=== PATIENT | male | born 1955 | race Caucasian/White ===

== ENCOUNTER 2024-12-27 14:37 | Emergency (ER) | payer MEDICARE ==
[~2024-12-27] VITALS: Ht 175.3 cm; Wt 89.2 kg
--- NOTE | 2024-12-27 15:43 | ED.PDOC ---
SOB-HPI HPI Comments 69-year-old male with a history of hypertension, brought in by self complaining of cough and dyspnea on exertion for the past week, associated with fever. Patient denies chest pain, nausea, vomiting, diaphoresis or edema. He states he has felt malaise along with the other symptoms, and has been unable to work out due to dyspnea. He states he is able to complete daily activities without dyspnea. Chief Complaint: Shortness of Breath Time Seen by MD: 15:02 Primary Care Provider: ELSA Astudillo notes: Nurses Notes, Medications, Allergies Information Source: Patient Mode of Arrival: Ambulatory Severity: Moderate Timing: Days Duration: Since onset, Days Context: With Light Exertion, Spontaneous Onset PE Risk Factors: None History of: None Prehospital treatment: None Associated Signs and Symptoms: Fever, Cough If cough with SOB: Non-Productive Past Medical History PAST MEDICAL HISTORY: HTN Past Medical History (Other): Hypertension Surgical History: Appendectomy Family History Family History: Reviewed,noncontributory to illness, Unobtainable Social History Smoker: Non-Smoker Alcohol: Denies ETOH Use Drugs: Denies Drug Use Lives In: Home All Other Systems: Reviewed and Negative (Comprehensive systems review obtained and negative except for what is stated in the HPI) Physical Exam General Appearance: Normal HEENT: Normal ENT Inspection, Pharynx Normal, TMs Normal Neck: Full Range of Motion, Non-Tender, Normal, Normal Inspection Respiratory: Chest Non-Tender, Lungs Clear, No Accessory Muscle Use, No Respiratory Distress, Normal Breath Sounds Cardiovascular: No Edema, No JVD, No Murmur, No Gallop, Normal Peripheral Pulses, Regular Rate/Rhythm Breast Exam: Deferred Gastrointestinal: No Organomegaly, Non Tender, No Pulsatile Mass, Normal Bowel Sounds, Soft Genitalia: Deferred Pelvic: Deferred Rectal: Deferred Extremities: No calf tenderness, Normal capillary refill, Normal inspection, Normal range of motion, Non-tender, No pedal edema Musculoskeletal : Apperance: Normal Neurologic: Alert, scientific research associate II-XII nml as Tested, No Motor Deficits, Normal Affect, Normal Mood, No Sensory Deficits Cerebellar Function: Normal Reflexes: Normal Skin: Dry, Normal Color, Rash (Erythematous maculopapular rash on chest and anterior abdominal wall), Warm Lymphatic: No Adenopathy Was a procedure done? Was a procedure done?: No Differential Dx Differential Diagnosis: Asthma, Bronchitis, CHF, COPD, Pneumonia, Respiratory Distress, URI X-Ray, Labs, Meds, VS Vital Signs Date Time Temp Pulse Resp B/P (MAP) Pulse Ox O2 Delivery O2 Flow Rate FiO2 12/27/24 17:54 102 18 103/54 (70) 94 12/27/24 16:21 111 20 93 Room Air* 0 21 12/27/24 16:21 99.0 111 18 137/79 (98) 93 99.0 12/27/24 16:01 99.5 12/27/24 15:00 101.2 115 20 122/79 (93) 95 Lab Test 12/27/24 16:50 12/27/24 15:57 Range/Units Troponin I High Sensitivity 7 7 </=54 ng/L White Blood Count 10.1 4.4-10.8 10^3/uL Red Blood Count 4.37 L 4.5-5.90 10^6/uL Hemoglobin 12.5 L 13.5-17.5 g/dL Hematocrit 36.9 L 41.0-53.0 % Mean Corpuscular Volume 84.5 80.0-100.0 fL Mean Corpuscular Hemoglobin 28.6 28.0-32.0 pg Mean Corpuscular Hemoglobin Concent 33.8 32.0-36.0 g/dL Red Cell Distribution Width 15.9 H 11.8-14.3 % Platelet Count 235 140-450 10^3/uL Mean Platelet Volume 9.2 6.9-10.8 fL Neutrophils (%) (Auto) 76.7 37.0-80.0 % Lymphocytes (%) (Auto) 12.2 10.0-50.0 % Monocytes (%) (Auto) 9.8 0.0-12.0 % Eosinophils (%) (Auto) 0.9 0.0-7.0 % Basophils (%) (Auto) 0.4 0.0-2.0 % Neutrophils # (Auto) 7.7 1.6-8.6 10 ^3/uL Lymphocytes # (Auto) 1.2 0.4-5.4 10 ^3/uL Monocytes # (Auto) 1.0 0-1.3 10 ^3/uL Eosinophils # (Auto) 0.1 0-0.8 10 ^3/uL Basophils # (Auto) 0 0-0.2 10 ^3/uL Nucleated Red Blood Cells 0.1 % Sodium Level 136 136-145 mmol/L Potassium Level 3.4 L 3.5-5.1 mmol/L Chloride Level 103 98-107 mmol/L Carbon Dioxide Level 24 20-31 mmol/L Anion Gap 9 5-15 Blood Urea Nitrogen 12 9-23 mg/dL Creatinine 1.19 0.700-1.30 mg/dL Glomerular Filtration Rate Calc 67 >90 mL/min BUN/Creatinine Ratio 10.1 10.0-20.0 Serum Glucose 113 H 74-106 mg/dL Lactic Acid Level 0.9 0.4-2.0 mmol/L Calcium Level 9.7 8.7-10.4 mg/dL B-Type Natriuretic Peptide 16.48 0-100 pg/mL Current Medications Medications (Trade) Dose Ordered Sig/Corinna Route Start Time Stop Time Status Last Admin Acetaminophen (Tylenol Tablet Or Capsule) 1,000 mg ONCE ONCE PO 12/27/24 15:30 12/27/24 15:31 DC 12/27/24 16:01 Ceftriaxone Sodium 50 ml @ 100 mls/hr ONCE ONCE IV 12/27/24 15:45 12/27/24 16:14 DC 12/27/24 16:01 Azithromycin 250 ml @ 125 mls/hr ONCE ONCE IV 12/27/24 15:45 12/27/24 17:44 DC 12/27/24 16:01 PROCEDURE(s): CXR2 - CHEST TWO VIEWS ROUTINE REASON: COUGH ORDER NUMBER(s): [id number], ACCESSION NUMBER(s): [id number] CHEST TWO VIEWS ROUTINE CLINICAL HISTORY: COUGH COMPARISON: None TECHNIQUE: Frontal and lateral view of the chest was obtained FINDINGS: Lines and Tubes: None Lungs: Left perihilar l and eft lower lobe infiltrates Pleura: No effusion. No pneumothorax. Cardiomediastinal contours: Unremarkable Bones: No acute osseous abnormality. IMPRESSION: 1. Left perihilar and left lower lobe infiltrates X-Ray, Labs, Meds, VS Comment 69-year-old male with a history of hypertension, brought in by self complaining of cough and dyspnea on exertion for the past week, associated with fever. Vitals remarkable for temperature 101.2, heart rate 115 Exam unremarkable Rhythm strip independently interpreted by me: Sinus tach, rate 115, no ectopy. Chest x-ray IMPRESSION: 1. Left perihilar and left lower lobe infiltrates CBC unremarkable, metabolic panel remarkable for potassium 3.4, BNP and troponin negative. Influenza and COVID tests were ordered, however patient stated he wanted to leave prior to results. Patient treated with the following in the ED: Tylenol 1 g p.o., Rocephin 1 g IV, Zithromax 500 mg IV, KCl 40 mEq p.o. On re-evaluation, patient stated he was feeling better and would like to be discharged home. Hospitalization was considered, however patient stated he not want to be hospitalized. Fever has resolved, oxygen saturation is normal on room air, and I am comfortable discharging the patient with close follow-up with his primary physician. Rx cefuroxime, Zithromax, Tylenol, albuterol Time of 1ST Reevaluation: 15:32 Reevaluation 1ST: Unchanged Time of 2ND Reevaluation: 17:54 Reevaluation 2ND: Improved Patient Education/Counseling: Diagnosis, Treatment, Prognosis Family Education/Counseling: No Family Present Departure 1 Departure Time of Disposition: 17:54 Impression: Primary Impression: Pneumonia Qualified Codes: J18.9 - Pneumonia, unspecified organism Disposition: 01 HOME / SELF CARE / HOMELESS Condition: Stable Additional Instructions: Follow-up with your primary doctor in 1-2 days. I have prescribed antibiotics, medicine for pain or fever, and an inhaler for difficulty breathing to use as needed. Return to ER for persistent or worsening symptoms. e-Prescriptions Albuterol Sulfate (Albuterol Sulfate Hfa) 108 Mcg/Act Aer 2 PUFF IN Q6HP PRN, #1 AER prn difficulty breathing Prov: CHAKA OLIVEIRA MD 12/27/24 Acetaminophen (Tylenol Extra Strength) 500 Mg Tab 1000 MG PO Q6HP PRN, #30 TAB prn fever or pain Prov: CHAKA OLIVEIRA MD 12/27/24 Azithromycin (Zithromax Z-José Miguel) 250 Mg Tab 250 MG PO DAILY, #6 TAB 2 tabs po on day 1, then 1 tab daily x 4 days Prov: CHAKA OLIVEIRA MD 12/27/24 Cefuroxime Axetil (Cefuroxime Axetil) 500 Mg Tab 1 TAB PO BID, #20 TAB Prov: CHAKA OLIVEIRA MD 12/27/24 Discharged With: Self Critical Care Note Critical Care Time?: No Stability Stability form required: No Heart Score Heart Score: Heart Score Response (Comments) Value History N/A 0 EKG N/A 0 Age N/A 0 Risk Factors N/A 0 Troponin N/A 0 Total 0 I personally scribed for CHAKA OLIVEIRA MD ([email or web address]) on 12/27/24 at 16:02. Electronically submitted by Edvin Chu ([email or web address]). CHAKA OLIVEIRA MD Dec 27, 2024 15:43
[2024-12-27] MEDS: AZITHROMYCIN 500MG/ 250ML 250 ML IV ONE (16:01)
[2024-12-27] MEDS: ACETAMINOPHEN 500 MG TAB or CAP PO ONE (16:01)
[2024-12-27] MEDS: cefTRIAXone 1GM/50ML D5W 50 ML IV ONE (16:01)
[2024-12-27 16:13] LABS: Basophils # (auto) 0 10 ^3/uL (0-0.2); Basophils % (auto) 0.4 % (0.0-2.0); Eosinophils # (auto) 0.1 10 ^3/uL (0-0.8); Eosinophils % (auto) 0.9 % (0.0-7.0); Hematocrit 36.9 % (41.0-53.0); Hemoglobin 12.5 g/dL (13.5-17.5); Lymphocytes # (auto) 1.2 10 ^3/uL (0.4-5.4); Lymphocytes % (auto) 12.2 % (10.0-50.0); Mean Corpuscular Hemoglobin 28.6 pg (28.0-32.0); Mean Corpuscular Hgb Conc. 33.8 g/dL (32.0-36.0); Mean Corpuscular Volume 84.5 fL (80.0-100.0); Monocytes % (auto) 9.8 % (0.0-12.0); Neutrophils # (auto) 7.7 10 ^3/uL (1.6-8.6); Neutrophils % (auto) 76.7 % (37.0-80.0); Nucleated Red Blood Cells % 0.1 %; Platelet Count (auto) 235 10^3/uL (140-450); Red Blood Cells 4.37 10^6/uL (4.5-5.90); Red Cell Distribution Width 15.9 % (11.8-14.3); White Blood Cell 10.1 10^3/uL (4.4-10.8)
[2024-12-27 16:21] VITALS: PULSE 111; RESP 20; TEMP 99; O2SAT 93
[2024-12-27 16:23] LABS: Chloride 103 mmol/L (98-107); Sodium 136 mmol/L (136-145)
[2024-12-27 16:24] LABS: Anion Gap 9 (5-15); Calcium 9.7 mg/dL (8.7-10.4); Carbon Dioxide 24 mmol/L (20-31)
[2024-12-27 16:29] LABS: BUN/Creatinine Ratio 10.1 (10.0-20.0); Blood Urea Nitrogen 12 mg/dL (9-23)
[2024-12-27 16:38] LABS: Glucose 113 mg/dL (74-106); Potassium 3.4 mmol/L (3.5-5.1)
[2024-12-27 17:54] VITALS: BP 103/54; PULSE 102; RESP 18; O2SAT 94
[2024-12-27] MEDS ORDERED: ACET-1304 PO (18:02)
[2024-12-27] MEDS ORDERED: ALBU108A5 IN (18:02)
[2024-12-27] MEDS ORDERED: CEFU500T43 PO (18:02)
[2024-12-27] MEDS ORDERED: AZITTAB PO (18:02)
[2024-12-27] MEDS: POTASSIUM CHL 20 Meq TABLET PO ONE (18:16)
== END 2024-12-27 18:20 | disposition home or self-care (01) ==
LOC: ER 14:37
DX: J18.9 Pneumonia, unspecified organism (principal); I10 Essential (primary) hypertension; Z90.49 Acquired absence of other specified parts of digestive tract
CPT/HCPCS: 36415; 80048; 83605; 83880; 84484; 85025; 87040; 96365; 96366; 96368; 99284; J0456; J0696

== ENCOUNTER 2025-03-05 11:11 | Emergency (ER) | payer MEDICARE ==
[~2025-03-05] VITALS: Ht 175.3 cm; Wt 93.0 kg
[~2025-03-05 11:11] MED LIST: ACET-1304 PO; ALBU108A5 IN; AZITTAB PO; CEFU500T43 PO
--- NOTE | 2025-03-05 11:30 | ED.PDOC ---
General HPI Comments 70 year old male presents to the ED with chief complaint of difficulty urinating. Patient reports that he has been experiencing difficulty in urinating with associated orange colored urine, fever, and bilateral leg pain. Patient relays that he has history of sciatica and the pain is now spreading to his legs. Patient denies any N/V/D, abdominal pain, dizziness, chills, flank pain, chest pain, or SOB. Time Seen by MD: 11:27 Primary Care Provider: ELSA Astudillo notes: Nurses Notes, Medications, Allergies Allergies: Coded Allergies: NO KNOWN ALLERGIES (Unverified , 11/04/12) Home Meds Active Scripts Ciprofloxacin Hcl (Cipro) 500 Mg Tab, 1 TAB PO BID for 7 Days, #14 TAB Prov:LEI LOMBARDI MD 03/05/25 Albuterol Sulfate (Albuterol Sulfate Hfa) 108 Mcg/Act Aer, 2 PUFF IN Q6HP PRN, #1 AER prn difficulty breathing Prov:CHAKA OLIVEIRA MD 12/28/24 Acetaminophen (Tylenol Extra Strength) 500 Mg Tab, 1000 MG PO Q6HP PRN, #30 TAB prn fever or pain Prov:CHAKA OLIVEIRA MD 12/28/24 Azithromycin (Zithromax Z-José Miguel) 250 Mg Tab, 250 MG PO DAILY, #6 TAB 2 tabs po on day 1, then 1 tab daily x 4 days Prov:CHAKA OLIVEIRA MD 12/28/24 Cefuroxime Axetil (Cefuroxime Axetil) 500 Mg Tab, 1 TAB PO BID, #20 TAB Prov:CHAKA OLIVEIRA MD 12/28/24 Information Source: Patient Mode of Arrival: Ambulatory Severity: Moderate Inability to void: Moderate Timing: Days Duration: Since onset Prehospital treatment: None Onset: Spontaneous Symptoms: None History of: None Location: None Penile discharge: None Modifying factors: None associated signs and symptoms: Fever, Other (Difficulty urinating) Past Medical History PAST MEDICAL HISTORY: HTN Surgical History: Appendectomy Family History Family History: Reviewed,noncontributory to illness, Unobtainable Social History Smoker: Non-Smoker Alcohol: Denies ETOH Use Drugs: Denies Drug Use Lives In: Home Constitutional: reports: fever; denies: chills, diaphoresis, fatigue, malaise, sweats, weakness, others EENTM: denies: blurred vision, double vision, ear bleeding, ear discharge, ear drainage, ear pain, ear ringing, eye pain, eye redness, hearing loss, mouth pain, mouth swelling, nasal discharge, nose bleeding, nose congestion, nose pain, photophobia, tearing, throat pain, throat swelling, voice changes, others Respiratory: denies: cough, hemoptysis, orthopnea, SOB at rest, shortness of breath, SOB with excertion, stridor, wheezing, others Cardiovascular: denies: chest pain, dizzy spells, diaphoresis, Dyspnea on exertion, edema, irregular heart beat, left arm pain, lightheadedness, palpitations, PND, syncope, others Gastrointestinal: denies: abdomen distended, abdominal pain, blood streaked bowels, constipated, diarrhea, dysphagia, difficulty swallowing, hematemesis, melena, nausea, poor appetite, poor fluid intake, rectal bleeding, rectal pain, vomiting, others Genitourinary: reports: others (Difficulty urinating); denies: burning, dysuria, flank pain, frequency, hematuria, incontinence, penile discharge, penile sore, pain, testicle pain, testicle swelling, urgency Neurological: denies: dizziness, fainting, headache, left sided numbness, left sided weakness, numbness, paresthesia, pre-existing deficit, right sided numbness, right sided weakness, seizure, speech problems, tingling, tremors, weakness, others Musculoskeletal: reports: others (Bilateral leg pain); denies: back pain, gout, joint pain, joint swelling, muscle pain, muscle stiffness, neck pain Integumetry: denies: bruises, change in color, change in hair/nails, dryness, laceration, lesions, lumps, rash, wounds, others Allergic/Immunocompromised: denies: Difficulty Healing, Frequent Infections, Hives, Itching, others Hematologic/Lymphatic: denies: anemia, blood clots, easy bleeding, easy bruising, swollen glands, others Endocrine: denies: excessive hunger, excessive sweating, excessive thirst, excessive urination, flushing, intolerance to cold, intolerance to heat, unexplained weight gain, unexplained weight loss, others Psychiatric: denies: anxiety, bipolar disorder, depression, hopeless, panic disorder, schizophrenia, sleepless, suicidal, others All Other Systems: Reviewed and Negative Physical Exam General Appearance: Moderate Distress, Normal HEENT: Normal ENT Inspection, PERRL/EOMI Neck: Full Range of Motion, Non-Tender, Normal, Normal Inspection Respiratory: Chest Non-Tender, Lungs Clear, No Accessory Muscle Use, No Respiratory Distress, Normal Breath Sounds Cardiovascular: No Edema, No JVD, No Murmur, No Gallop, Normal Peripheral P ulses, Regular Rate/Rhythm Breast Exam: Deferred Gastrointestinal: No Organomegaly, Non Tender, No Pulsatile Mass, Normal Bowel Sounds, Soft Genitalia: Deferred Pelvic: Deferred Rectal: Deferred Extremities: No calf tenderness, Normal capillary refill, Normal inspection, Normal range of motion, Non-tender, No pedal edema Musculoskeletal : Apperance: Normal Neurologic: Alert, commercial attache II-XII nml as Tested, No Motor Deficits, Normal Affect, Normal Mood, No Sensory Deficits Cerebellar Function: Normal Reflexes: Normal Skin: Dry, Normal Color, Warm Peripheral Pulses: 3+ Radial (R), 3+ Radial (L) Lymphatic: No Adenopathy Was a procedure done? Was a procedure done?: No Differential Diagnosis Kidney stone (Female): Musculoskeletal pain, Urinary obstruction, Urolithiasis Kidney stone (Male): N/A Urinary Problem (Male): Bladder Outlet, Bladder Obstruction, Urinary Retention, Urolithiasis, UTI X-Ray, Labs, Meds, VS Vital Signs Date Time Temp Pulse Resp B/P (MAP) Pulse Ox O2 Delivery O2 Flow Rate FiO2 03/05/25 15:03 97.9 89 16 138/86 (103) 96 97.9 03/05/25 15:02 Room Air* 0 21 03/05/25 11:39 98.9 107 17 151/81 (104) 96 98.9 Lab Test 03/05/25 11:39 03/05/25 11:34 Range/Units White Blood Count 19.6 H 4.4-10.8 10^3/uL Red Blood Count 4.86 4.5-5.90 10^6/uL Hemoglobin 13.9 13.5-17.5 g/dL Hematocrit 41.7 41.0-53.0 % Mean Corpuscular Volume 85.8 80.0-100.0 fL Mean Corpuscular Hemoglobin 28.6 28.0-32.0 pg Mean Corpuscular Hemoglobin Concent 33.3 32.0-36.0 g/dL Red Cell Distribution Width 15.7 H 11.8-14.3 % Platelet Count 195 140-450 10^3/uL Mean Platelet Volume 9.2 6.9-10.8 fL Neutrophils (%) (Auto) 85.8 H 37.0-80.0 % Lymphocytes (%) (Auto) 5.3 L 10.0-50.0 % Monocytes (%) (Auto) 8.0 0.0-12.0 % Eosinophils (%) (Auto) 0.0 0.0-7.0 % Basophils (%) (Auto) 0.9 0.0-2.0 % Neutrophils # (Auto) 16.9 H 1.6-8.6 10 ^3/uL Lymphocytes # (Auto) 1.0 0.4-5.4 10 ^3/uL Monocytes # (Auto) 1.6 H 0-1.3 10 ^3/uL Eosinophils # (Auto) 0 0-0.8 10 ^3/uL Basophils # (Auto) 0.2 0-0.2 10 ^3/uL Nucleated Red Blood Cells 0.0 % Sodium Level 139 136-145 mmol/L Potassium Level 3.5 3.5-5.1 mmol/L Chloride Level 103 98-107 mmol/L Carbon Dioxide Level 27 20-31 mmol/L Anion Gap 9 5-15 Blood Urea Nitrogen 12 9-23 mg/dL Creatinine 1.32 H 0.700-1.30 mg/dL Glomerular Filtration Rate Calc 59 >90 mL/min BUN/Creatinine Ratio 9.1 L 10.0-20.0 Serum Glucose 126 H 74-106 mg/dL Calcium Level 9.9 8.7-10.4 mg/dL Urine Color Yellow Yellow Urine Clarity Clear Clear Urine pH 6.0 5.0-9.0 Urine Specific [place] 1.025 1.001-1.035 Urine Protein 1+ H Negative Urine Ketones Negative Negative Urine Blood Trace H Negative /uL Urine Nitrite Negative Negative Urine Bilirubin Negative Negative Urine Urobilinogen Normal Negative mg/dL Urine Leukocyte Esterase 2+ Negative /uL Urine RBC 8 0 - 3 /hpf Urine Microscopic WBC 79 H 0-3 /HPF Urine Squamous Epithelial Cells Few <5 /hpf Urine Bacteria None seen None Seen /hpf Urine Mucus Few None Seen Urine Glucose Normal Normal mg/dL Patient alert. Complaining of abdominal discomfort. Vitals stable. Answering questions. UA shows UTI. Patient refuses intravenous antibiotics pain Spoke to the patient at 3:00 a.m. stating that he will be admitted for urosepsis. Patient did not want to stay. He was told that he will need fluids. His WBC elevated. Urosepsis. Time of 1ST Reevaluation: 12:27 Reevaluation 1ST: Unchanged Patient Education/Counseling: Diagnosis, Treatment, Prognosis Family Education/Counseling: No Family Present Additional Information The following tests were ordered, and results were reviewed by me: CBC, BMP Additional Information was gathered from interviewing the following independent historians: None I reviewed and agreed with the following test results read by other providers: None I discussed treatment and results with medical personnel and: patient Comprehensive systems review obtained and negative except for what is stated in the HPI. Departure 1 Departure Time of Disposition: 16:12 Impression: Primary Impression: Sepsis due to urinary tract infection Additional Impression: Uncontrolled diabetes mellitus Qualified Codes: E13.65 - Other specified diabetes mellitus with hyperglycemia Disposition: ADMITTED INPATIENT Admit to: Med Surg Condition: Guarded e-Prescriptions Ciprofloxacin Hcl (Cipro) 500 Mg Tab 1 TAB PO BID for 7 Days, #14 TAB Prov: LEI LOMBARDI MD 03/05/25 Comments Spoke to and examined patient at 1126, discussing treatment plan at this time. Critical Care Note Critical Care Time?: No Stability Stability form required: No Heart Score Heart Score: Heart Score Response (Comments) Value History N/A 0 EKG N/A 0 Age N/A 0 Risk Factors N/A 0 Troponin N/A 0 Total 0 I personally scribed for LEI LOMBARDI MD ([email or web address]) on 03/05/25 at 11:30. Electronically submitted by Dario Gregg ([email or web address]). LEI LOMBARDI MD March 05, 2025 11:30
[2025-03-05 11:37] LABS: Urine Bacteria None Seen /hpf (None Seen)
[2025-03-05 11:44] LABS: Urine Blood TRACE /uL (Negative); Urine Clarity Clear (Clear); Urine Color Yellow (Yellow); Urine Mucus FEW (None Seen); Urine Protein, UAD 1+ (Negative); Urine Specific Gravity 1.025 (1.001-1.035); Urine Squamous Epithelial Cell FEW /hpf (<5); Urine Urobilinogen Normal (Negative); Urine WBC 79 /HPF (0-3)
[2025-03-05 11:48] LABS: Basophils # (auto) 0.2 10 ^3/uL (0-0.2); Basophils % (auto) 0.9 % (0.0-2.0); Eosinophils # (auto) 0 10 ^3/uL (0-0.8); Hematocrit 41.7 % (41.0-53.0); Hemoglobin 13.9 g/dL (13.5-17.5); Lymphocytes % (auto) 5.3 % (10.0-50.0); Mean Corpuscular Hemoglobin 28.6 pg (28.0-32.0); Mean Corpuscular Hgb Conc. 33.3 g/dL (32.0-36.0); Mean Corpuscular Volume 85.8 fL (80.0-100.0); Monocytes # (auto) 1.6 10 ^3/uL (0-1.3); Neutrophils # (auto) 16.9 10 ^3/uL (1.6-8.6); Neutrophils % (auto) 85.8 % (37.0-80.0); Platelet Count (auto) 195 10^3/uL (140-450); Red Blood Cells 4.86 10^6/uL (4.5-5.90); Red Cell Distribution Width 15.7 % (11.8-14.3); White Blood Cell 19.6 10^3/uL (4.4-10.8)
[2025-03-05 11:58] LABS: Chloride 103 mmol/L (98-107); Sodium 139 mmol/L (136-145)
[2025-03-05 11:59] LABS: Anion Gap 9 (5-15); Calcium 9.9 mg/dL (8.7-10.4); Carbon Dioxide 27 mmol/L (20-31)
[2025-03-05 12:04] LABS: BUN/Creatinine Ratio 9.1 (10.0-20.0); Blood Urea Nitrogen 12 mg/dL (9-23)
[2025-03-05 12:05] LABS: Glucose 126 mg/dL (74-106); Potassium 3.5 mmol/L (3.5-5.1)
[2025-03-05] MEDS: cefTRIAXone 1GM/50ML D5W 50 ML IV ONE (13:45)
[2025-03-05 15:03] VITALS: BP 138/86; PULSE 89; RESP 16; TEMP 97.9; O2SAT 96
[2025-03-05] MEDS ORDERED: CIPR-173 PO (16:13)
== END 2025-03-05 16:11 | disposition left against medical advice (07) ==
LOC: ER 11:18
DX: A41.9 Sepsis, unspecified organism (principal); N39.0 Urinary tract infection, site not specified; E11.65 Type 2 diabetes mellitus with hyperglycemia; I10 Essential (primary) hypertension; Z90.49 Acquired absence of other specified parts of digestive tract; Z79.899 Other long term (current) drug therapy
CPT/HCPCS: 36415; 80048; 81001; 85025; 87086